=== PATIENT | male | born 1985 | race Caucasian/White ===

== ENCOUNTER 2020-12-26 13:08 | Inpatient (IN) | payer MEDICAID, OTHER ==
[~2020-12-26] VITALS: Ht 165.1 cm; Wt 65.9 kg
[2020-12-26 15:26] LABS: AMPHET/METH SCREEN,URINE NEGATIVE (NEGATIVE); BARBITURATE SCREEN, URINE NEGATIVE (NEGATIVE); BENZODIAZEPINES SCREEN,URINE NEGATIVE (NEGATIVE); CANNABINOID SCREEN,URINE POSITIVE (NEGATIVE); COCAINE SCREEN,URINE NEGATIVE (NEGATIVE); METHADONE SCREEN, URINE NEGATIVE (NEGATIVE); OPIATE SCREEN,URINE NEGATIVE (NEGATIVE)
[2020-12-26] MEDS ORDERED: ZOLPIDEM TARTRATE 10 MG TABLET PO PRN (15:30)
[2020-12-26] MEDS ORDERED: GuaiFENesin/D-METHORPHAN [SUGAR-FREE] 200-20MG/10 ML SYRUP UDCUP PO PRN (15:30)
[2020-12-26] MEDS ORDERED: PROMETHAZINE HCL 25 MG TABLET PO PRN (15:30)
[2020-12-26] MEDS ORDERED: HydrOXYzine PAMOATE 50 MG CAPSULE PO PRN (15:30)
[2020-12-26] MEDS ORDERED: TUBERCULIN, PURIFIED PROTEIN DERIVATIVE 5 TU/0.1 ML SYRINGE ID ONE (15:30)
[2020-12-26] MEDS ORDERED: OLANZapine 5 MG RAPDIS TABLET PO PRN (15:30)
[2020-12-26 15:31] LABS: PHENCYCLIDINE SCREEN,URINE NEGATIVE (NEGATIVE)
[2020-12-26 16:02] LABS: BASOPHILS % (AUTO) 0.9 % (0.0-2.0); EOSINOPHILS % (AUTO) 12.4 % (1.0-6.0); HEMATOCRIT 40.5 % (41-53); HEMOGLOBIN 14.3 g/dL (13.5-17.5); LYMPHOCYTES # (AUTO) 1.7 K/uL (1.0-4.8); LYMPHOCYTES % (AUTO) 24.3 % (22.0-44.0); MEAN CORPUSCULAR HEMOGLOBIN 30.9 pg (26.0-34.0); MEAN CORPUSCULAR HGB CONC 35.3 G/dL (31.0-37.0); MEAN CORPUSCULAR VOLUME 87 fL (80-100); MONOCYTES # (AUTO) 0.6 K/uL (0.1-1.0); MONOCYTES % (AUTO) 8.6 % (2.0-9.0); NEUTROPHILS # (AUTO) 3.8 K/uL (1.8-7.7); NEUTROPHILS % (AUTO) 53.8 % (40.0-70.0); PLATELET COUNT (AUTO) 281 K/uL (150-450); RED BLOOD CELL COUNT(AUTO) 4.64 MIL/uL (4.50-5.90); RED CELL DISTRIBUTION WIDTH 12.7 % (11.5-14.5)
[2020-12-26 16:11] LABS: ANION GAP 6 mmol/L (8-16); CALCIUM, TOTAL 9.4 mg/dL (8.8-10.5); CARBON DIOXIDE 31 mmol/L (22-29); CHLORIDE 102 mmol/L (98-107); CREATININE 1.02 mg/dL (0.60-1.30); GLOMERULAR FILTR. RATE CALC > 60 mL/min (>60); GLUCOSE,RANDOM 111 mg/dL (70-110); POTASSIUM 3.7 mmol/L (3.5-5.1); SODIUM SERUM 139 mmol/L (136-145); UREA NITROGEN, BLOOD 16 mg/dL (7-18)
[2020-12-26 16:17] LABS: ALANINE AMINOTRANSFERASE 92 U/L (12-78); ALBUMIN 3.6 g/dL (3.4-5.0); ALKALINE PHOSPHATASE 64 U/L (46-116); ASPARTATE AMINOTRANSFERASE 37 U/L (15-37); BILIRUBIN,TOTAL 0.2 mg/dL (0.1-1.0); TOTAL PROTEIN, SERUM 7.2 g/dL (6.4-8.2)
[2020-12-26] MEDS: THIAMINE 100 MG TABLET PO SCH (17:00)
[2020-12-26 18:04] LABS: COVID AG,FIA SOURCE NASOPHARYNGEAL
[2020-12-26] MEDS ORDERED: INFLUENZA VIRUS VACCINE QVS 2020-21 (6MO+)/PF 60 MCG/0.5 ML SYRINGE IM ONE (20:45)
[2020-12-26 20:50] VITALS: BP 132/85
[2020-12-26] MEDS ORDERED: OLANZapine 5 MG RAPDIS TABLET PO SCH (21:00)
[2020-12-26] MEDS: MELATONIN 5 MG TABLET PO SCH (21:00)
[2020-12-27 07:19] LABS: HEMOGLOBIN A1C 5.2 % (3.8-5.6)
[2020-12-27 07:59] LABS: CHOL/HDL RATIO 5.1 (4.2-7.3); FREE T4 (FREE THYROXINE) 1.04 ng/dL (0.76-1.46); THYROID STIMULATING HORMONE 2.86 uIU/mL (0.36-3.74)
[2020-12-27] MEDS: FOLIC ACID 1 MG TABLET PO SCH (08:27)
[2020-12-27] MEDS: MULTIVITAMINS WITH MINERALS, THERAPEUTIC TABLET PO SCH (08:27)
[2020-12-27] MEDS: NALTREXONE HCL 50 MG TABLET PO SCH (08:27)
[2020-12-27] MEDS: OMEGA-3/DHA/EPA/FISH OIL 1,000 MG CAPSULE PO SCH (08:27)
[2020-12-27] MEDS: THIAMINE 100 MG TABLET PO SCH ×2 (08:27→16:34)
[2020-12-27] MEDS: BuPROPion HCL XL 150 MG ER TABLET PO SCH (08:28)
[2020-12-27 19:13] VITALS: BP 112/74
[2020-12-27] MEDS: OLANZapine 10 MG RAPDIS TABLET PO SCH (20:33)
[2020-12-27] MEDS: MELATONIN 5 MG TABLET PO SCH (20:33)
[2020-12-28] MEDS: OMEGA-3/DHA/EPA/FISH OIL 1,000 MG CAPSULE PO SCH (08:15)
[2020-12-28] MEDS: THIAMINE 100 MG TABLET PO SCH ×2 (08:15→16:30)
[2020-12-28] MEDS: FOLIC ACID 1 MG TABLET PO SCH (08:15)
[2020-12-28] MEDS: BuPROPion HCL XL 150 MG ER TABLET PO SCH (08:15)
[2020-12-28] MEDS: MULTIVITAMINS WITH MINERALS, THERAPEUTIC TABLET PO SCH (08:15)
[2020-12-28] MEDS: NALTREXONE HCL 50 MG TABLET PO SCH (08:15)
[2020-12-28 09:17] VITALS: BP 127/86
[2020-12-28 09:42] LABS: RPR QUANT. (TITER) Non Reactive (NonRea<1:1)
[2020-12-28 16:00] VITALS: BP 130/79
[2020-12-28] MEDS: MELATONIN 5 MG TABLET PO SCH (20:41)
[2020-12-28] MEDS: OLANZapine 10 MG RAPDIS TABLET PO SCH (20:41)
[2020-12-29] MEDS: OMEGA-3/DHA/EPA/FISH OIL 1,000 MG CAPSULE PO SCH (08:47)
[2020-12-29] MEDS: FOLIC ACID 1 MG TABLET PO SCH (08:47)
[2020-12-29] MEDS: BuPROPion HCL XL 150 MG ER TABLET PO SCH (08:47)
[2020-12-29] MEDS: FLUoxetine HCL 20 MG CAPSULE PO SCH (08:47)
[2020-12-29] MEDS: NALTREXONE HCL 50 MG TABLET PO SCH (08:49)
[2020-12-29] MEDS: MULTIVITAMINS WITH MINERALS, THERAPEUTIC TABLET PO SCH (08:49)
[2020-12-29] MEDS: THIAMINE 100 MG TABLET PO SCH ×2 (08:49→16:24)
[2020-12-29 12:01] VITALS: BP 126/78
[2020-12-29 16:00] VITALS: BP 141/64
[2020-12-29] MEDS: OLANZapine 10 MG RAPDIS TABLET PO SCH (20:06)
[2020-12-29] MEDS: DIVALPROEX SODIUM 250 MG ER TABLET PO SCH (20:06)
[2020-12-29] MEDS: MELATONIN 5 MG TABLET PO SCH (20:06)
[2020-12-30] MEDS: OMEGA-3/DHA/EPA/FISH OIL 1,000 MG CAPSULE PO SCH (09:00)
[2020-12-30] MEDS: FLUoxetine HCL 20 MG CAPSULE PO SCH (09:00)
[2020-12-30] MEDS: FOLIC ACID 1 MG TABLET PO SCH (09:00)
[2020-12-30] MEDS: NALTREXONE HCL 50 MG TABLET PO SCH (09:00)
[2020-12-30] MEDS: MULTIVITAMINS WITH MINERALS, THERAPEUTIC TABLET PO SCH (09:00)
[2020-12-30] MEDS: BuPROPion HCL XL 150 MG ER TABLET PO SCH (09:00)
[2020-12-30] MEDS: THIAMINE 100 MG TABLET PO SCH ×2 (09:00→17:00)
[2020-12-30 09:49] VITALS: BP 140/91
[2020-12-30 16:00] VITALS: BP 141/86
[2020-12-30] MEDS: OLANZapine 10 MG RAPDIS TABLET PO SCH (20:18)
[2020-12-30] MEDS: DIVALPROEX SODIUM 250 MG ER TABLET PO SCH (20:18)
[2020-12-30] MEDS: MELATONIN 5 MG TABLET PO SCH (20:18)
[2020-12-31] MEDS: BuPROPion HCL XL 150 MG ER TABLET PO SCH (08:54)
[2020-12-31] MEDS: GABAPENTIN 300 MG CAPSULE PO SCH ×3 (08:54→16:26)
[2020-12-31] MEDS: OMEGA-3/DHA/EPA/FISH OIL 1,000 MG CAPSULE PO SCH (08:54)
[2020-12-31] MEDS: NALTREXONE HCL 50 MG TABLET PO SCH (08:54)
[2020-12-31] MEDS: FOLIC ACID 1 MG TABLET PO SCH (08:54)
[2020-12-31] MEDS: THIAMINE 100 MG TABLET PO SCH ×2 (08:54→16:26)
[2020-12-31] MEDS: FLUoxetine HCL 20 MG CAPSULE PO SCH (08:54)
[2020-12-31] MEDS: MULTIVITAMINS WITH MINERALS, THERAPEUTIC TABLET PO SCH (08:54)
[2020-12-31 09:18] VITALS: BP 130/91
[2020-12-31] MEDS: OLANZapine 10 MG RAPDIS TABLET PO SCH (20:18)
[2020-12-31] MEDS: MELATONIN 5 MG TABLET PO SCH (20:18)
[2020-12-31] MEDS: DIVALPROEX SODIUM 250 MG ER TABLET PO SCH (20:18)
[2021-01-01] MEDS: FOLIC ACID 1 MG TABLET PO SCH (08:50)
[2021-01-01] MEDS: BuPROPion HCL XL 150 MG ER TABLET PO SCH (08:51)
[2021-01-01] MEDS: NALTREXONE HCL 50 MG TABLET PO SCH (08:51)
[2021-01-01] MEDS: THIAMINE 100 MG TABLET PO SCH ×2 (08:51→16:28)
[2021-01-01] MEDS: GABAPENTIN 300 MG CAPSULE PO SCH ×3 (08:51→16:28)
[2021-01-01] MEDS: FLUoxetine HCL 20 MG CAPSULE PO SCH (08:51)
[2021-01-01] MEDS: OMEGA-3/DHA/EPA/FISH OIL 1,000 MG CAPSULE PO SCH (08:51)
[2021-01-01] MEDS: MULTIVITAMINS WITH MINERALS, THERAPEUTIC TABLET PO SCH (08:51)
[2021-01-01 09:43] VITALS: BP 134/86
[2021-01-01 16:31] LABS: COVID AG,FIA SOURCE NASOPHARYNGEAL
[2021-01-01] MEDS: DIVALPROEX SODIUM 250 MG ER TABLET PO SCH (20:56)
[2021-01-01] MEDS: OLANZapine 10 MG RAPDIS TABLET PO SCH (20:57)
[2021-01-01] MEDS: MELATONIN 5 MG TABLET PO SCH (20:57)
[2021-01-02] MEDS: FOLIC ACID 1 MG TABLET PO SCH (08:57)
[2021-01-02] MEDS: THIAMINE 100 MG TABLET PO SCH ×2 (08:57→16:29)
[2021-01-02] MEDS: BuPROPion HCL XL 150 MG ER TABLET PO SCH (08:57)
[2021-01-02] MEDS: NALTREXONE HCL 50 MG TABLET PO SCH (08:57)
[2021-01-02] MEDS: GABAPENTIN 300 MG CAPSULE PO SCH ×3 (08:57→16:29)
[2021-01-02] MEDS: OMEGA-3/DHA/EPA/FISH OIL 1,000 MG CAPSULE PO SCH (08:57)
[2021-01-02] MEDS: MULTIVITAMINS WITH MINERALS, THERAPEUTIC TABLET PO SCH (08:57)
[2021-01-02] MEDS: FLUoxetine HCL 20 MG CAPSULE PO SCH (08:58)
[2021-01-02 09:18] VITALS: BP 132/90
[2021-01-02 17:37] VITALS: BP 137/97
[2021-01-02] MEDS: OLANZapine 10 MG RAPDIS TABLET PO SCH (20:17)
[2021-01-02] MEDS: DIVALPROEX SODIUM 250 MG ER TABLET PO SCH (20:17)
[2021-01-02] MEDS: MELATONIN 5 MG TABLET PO SCH (20:17)
[2021-01-03 09:12] VITALS: BP 128/84
[2021-01-03] MEDS: BuPROPion HCL XL 150 MG ER TABLET PO SCH (10:34)
[2021-01-03] MEDS: OMEGA-3/DHA/EPA/FISH OIL 1,000 MG CAPSULE PO SCH (10:34)
[2021-01-03] MEDS: FOLIC ACID 1 MG TABLET PO SCH (10:34)
[2021-01-03] MEDS: NALTREXONE HCL 50 MG TABLET PO SCH (10:34)
[2021-01-03] MEDS: GABAPENTIN 300 MG CAPSULE PO SCH ×2 (10:34→13:55)
[2021-01-03] MEDS: THIAMINE 100 MG TABLET PO SCH (10:34)
[2021-01-03] MEDS: FLUoxetine HCL 20 MG CAPSULE PO SCH (10:34)
[2021-01-03] MEDS: MULTIVITAMINS WITH MINERALS, THERAPEUTIC TABLET PO SCH (10:34)
[2021-01-03] MEDS ORDERED: BUPR-48 PO (13:31)
[2021-01-03] MEDS ORDERED: MELA5TAB3 PO (13:31)
[2021-01-03] MEDS ORDERED: FLUO-191 PO (13:31)
[2021-01-03] MEDS ORDERED: OLAN10TA22 PO (13:31)
[2021-01-03] MEDS ORDERED: GABA-1181 PO (13:31)
[2021-01-03] MEDS ORDERED: OMEG-135 PO (13:31)
[2021-01-03] MEDS ORDERED: NALT50TA PO (13:31)
== END 2021-01-03 15:26 | disposition home or self-care (01) | DRG 750 ==
LOC: EMS 13:08 → 3EI 15:23 → UNDOADMIN 16:26 → 3EI 16:26
PROVIDERS: ADMIT Psychiatry & Neurology Psychiatry; ATTEND Psychiatry & Neurology Psychiatry
DX: F25.9 Schizoaffective disorder, unspecified (principal); E78.5 Hyperlipidemia, unspecified; F12.10 Cannabis abuse, uncomplicated; F41.9 Anxiety disorder, unspecified; Z20.822 Contact with and (suspected) exposure to COVID-19; R45.851 Suicidal ideations; Z59.9 Problem related to housing and economic circumstances, unspecified; Z65.3 Problems related to other legal circumstances; Z79.899 Other long term (current) drug therapy; Z91.419 Personal history of unspecified adult abuse; Z59.0 Homelessness
CPT/HCPCS: 83036; 84439; 84443; 86592; 86593; 86780; 87081; 87426; 99285; A9575; G0480

== ENCOUNTER 2021-04-05 14:21 | Emergency (ER) | payer MEDICAID, OTHER ==
[~2021-04-05] VITALS: Ht 167.6 cm; Wt 65.9 kg
[~2021-04-05 14:21] MED LIST: BUPR-49 PO; FLUO-191 PO; GABA-1181 PO; MELA5TAB3 PO; NALT50TA PO; OLAN10TA22 PO; OMEG-135 PO
[2021-04-05 14:23] VITALS: BP 110/73
== END 2021-04-05 16:02 | disposition home or self-care (01) ==
LOC: EMS 14:28
DX: H92.02 Otalgia, left ear (principal); F12.90 Cannabis use, unspecified, uncomplicated
CPT/HCPCS: 99283; Z7502